=== PATIENT | female | born 1975 | race American Indian/Alaskan Native ===

== ENCOUNTER 2017-10-26 13:34 | Emergency (ER) | payer MEDICAID ==
[2017-10-26 13:45] VITALS: RESP 18
[2017-10-26 14:56] LABS: BASO # 0.1 K/uL (0.0-0.2); BASO % 0.8 % (0.0-2.0); EOS # 0.2 K/uL (0.0-0.7); EOS % 1.9 % (0.0-4.0); HEMOGLOBIN 15.8 g/dL (11.0-16.0); LYMPH # 2.7 K/uL (1.0-4.3); LYMPH % 33.3 % (20.0-40.0); MEAN CELL VOLUME 94.1 fL (81.0-99.0); MEAN CORPUSCULAR HGB CONC 36.1 g/dL (33.0-37.0); MEAN PLATELET VOLUME 7.8 fL (7.2-11.7); MONO # 0.6 K/uL (0.0-0.8); MONO % 8.2 % (0.0-10.0); NEUT # 4.4 K/uL (1.8-7.0); NEUT % 55.8 % (50.0-75.0); NRBC % 0.1 % (0.0-2.0); RBC 4.65 Mil/uL (3.80-5.20); RED CELL DISTRIBUTION WIDTH 14.2 % (11.5-14.5)
[2017-10-26 15:02] LABS: SQUAMOUS EPITHIAL 29 /hpf (0-5); URINE BACTERIA RARE (<OCC); URINE BILIRUBIN NEGATIVE (NEGATIVE); URINE BLOOD 2+ (NEGATIVE); URINE CLARITY Hazy (Clear); URINE COLOR Yellow (YELLOW); URINE GLUCOSE (UA) NORMAL (Normal); URINE LEUKOCYTE ESTERASE NEG Leu/uL (Negative); URINE PROTEIN NEGATIVE (NEGATIVE); URINE UROBILINOGEN NORMAL mg/dL (0.2-1.0)
[2017-10-26 15:08] LABS: ALB/GLOB RATIO 1.2 (1.0-2.1); ALBUMIN 4.6 g/dL (3.5-5.0); ALT/SGPT 17 U/L (9-52); AST/SGOT 35 U/L (14-36); BLOOD UREA NITROGEN 12 mg/dL (7-17); CALCIUM 9.4 mg/dl (8.6-10.4); GFR AFRICAN-AMERICAN > 60; GFR NON-AFRICAN AMERICAN > 60; LIPASE 99 U/L (23-300)
--- NOTE | 2017-10-26 15:36 | C.PDOC ---
History Of Present Illness 42 y/o female presents to the ER complaining of abdominal discomfort, nausea, and vomiting which began after she was celebrating and drinking ETOH last night. Patient states that she felt nauseous today when her friends convinced her to have another shot making matters worse. Patient denies having CP and SOB. Time Seen by Provider: 10/26/17 14:03 Chief Complaint (Nursing): Abdominal Pain History Per: Patient History/Exam Limitations: no limitations Onset/Duration Of Symptoms: Days Current Symptoms Are (Timing): Still Present Severity: Moderate Past Medical History Reviewed: Historical Data, Nursing Documentation, Vital Signs Vital Signs: Last Vital Signs Temp 98.3 F 10/26/17 17:39 Pulse 72 10/26/17 17:39 Resp 18 10/26/17 17:39 BP 99/64 L 10/26/17 17:39 Pulse Ox 98 10/26/17 18:32 - Medical History PMH: Asthma, Bronchitis Other Surgeries: Hx of surgeries Family History: States: No Known Family Hx - Social History Hx Alcohol Use: Yes Hx Substance Use: No - Immunization History Hx Tetanus Toxoid Vaccination: Yes Hx Influenza Vaccination: No Hx Pneumococcal Vaccination: No Review Of Systems Except As Marked, All Systems Reviewed And Found Negative. Constitutional: Negative for: Fever, Chills Respiratory: Negative for: Cough, Shortness of Breath Gastrointestinal: Positive for: Nausea, Vomiting, Abdominal Pain Physical Exam - Physical Exam Appears: Non-toxic, No Acute Distress Skin: Normal Color, Warm, Dry Head: Atraumatic, Normacephalic Eye(s): bilateral: Normal Inspection Nose: Normal Oral Mucosa: Moist Neck: Supple Chest: Symmetrical Cardiovascular: Rhythm Regular Respiratory: Normal Breath Sounds, No Rales, No Rhonchi, No Wheezing Gastrointestinal/Abdominal: Soft, Tenderness (mild epigastric tenderness), No Guarding, No Rebound Neurological/Psych: Oriented x3, Normal Speech ED Course And Treatment - Laboratory Results Result Diagrams: 10/26/17 14:51 10/26/17 14:51 O2 Sat by Pulse Oximetry: 98 (RA) Pulse Ox Interpretation: Normal - CT Scan/US CT- Abd. & Pelv. Other Rad Studies (CT/US): Read By Radiologist, Radiology Report Reviewed CT/US Interpretation: PROCEDURE: Radiographs of the chest and abdomen ( obstructive series). HISTORY: Abdominal pain. COMPARISON: No prior. TECHNIQUE: AP radiograph of the chest, with upright and supine radiographs of the abdomen. FINDINGS: CHEST: Lungs: Clear. Cardiovascular: Normal size heart. No pulmonary vascular congestion. Pleura: No pleural fluid. No pneumothorax. Other findings: None. ABDOMEN AND PELVIS: Bowel: Unremarkable bowel gas pattern. No evidence of mechanical obstruction however note made of moderate amount of stool within the cecum at ascending, transverse and to a lesser degree proximal descending colon consistent with mild fecal retention/ constipation. Free air: None. Bones: Unremarkable. Other findings: None. IMPRESSION: Unremarkable radiographs of chest and abdomen. No evidence of mechanical bowel obstruction. Moderate amount of stool seen throughout the cecum, ascending, transverse and proximal descending colon suggesting mild fecal retention/ constipation. Medical Decision Making Medical Decision Making: Assessment: Alcoholic gastritis Plan: --Labs --UA --X-Ray - Abd --Maalox PO --Protonix IV --Reglan IV --Toradol IV --Tylenol PO --Zofran PO Updates: On re-evaluation, patient feels better and tolerating PO. Patient has been discharged home, instructed to follow up with PMD in 2 days and return to ER if symptoms worsen. Disposition Counseled Patient/Family Regarding: Studies Performed, Diagnosis, Need For Followup, Rx Given - Disposition Referrals: Rudy Suggs MD [Staff Provider] - Disposition: HOME/ ROUTINE Disposition Time: 15:34 Condition: IMPROVED Additional Instructions: follow up with your doctor in 2 days call to make an appointment take medications as prescribed return to ER if symptoms worsens or progress Prescriptions: Famotidine [Pepcid] 20 mg PO BID #20 tab Ondansetron ODT [Zofran ODT] 4 mg PO TID PRN #12 odt PRN Reason: Nausea/Vomiting Instructions: Nausea and Vomiting, Adult (DC) Forms: General Discharge Instructions, [facility] ([place]), Work Excuse - Clinical Impression Clinical Impression: Alcoholic gastritis - Scribe Statement The provider has reviewed the documentation as recorded by the Antoinette Kim Provider Attestation: All medical record entries made by the Laineyibniraj were at my direction and personally dictated by me. I have reviewed the chart and agree that the record accurately reflects my personal performance of the history, physical exam, medical decision making, and the department course for this patient. I have also personally directed, reviewed, and agree with the discharge instructions and disposition.
[2017-10-26] MEDS ORDERED: Aluminum Hydroxide/Magnesium Hydroxide Susp (30 mL) PO STA (15:40)
[2017-10-26] MEDS ORDERED: Aluminum Hydroxide/Magnesium Hydroxide Susp (30 mL) ONE (15:52)
[2017-10-26 17:40] VITALS: BP 99/64; PULSE 72; TEMP 98.3
[2017-10-26 17:58] VITALS: O2SAT 98
--- NOTE | 2017-10-26 18:47 | RAD ---
PROCEDURE: Radiographs of the chest and abdomen (obstructive series) HISTORY: Abdominal pain COMPARISON: No prior. TECHNIQUE: AP radiograph of the chest, with upright and supine radiographs of the abdomen. FINDINGS: CHEST: Lungs: Clear. Cardiovascular: Normal size heart. No pulmonary vascular congestion. Pleura: No pleural fluid. No pneumothorax. Other findings: None. ABDOMEN AND PELVIS: Bowel: Unremarkable bowel gas pattern. No evidence of mechanical obstruction however note made of moderate amount of stool within the cecum at ascending, transverse and to a lesser degree proximal descending colon consistent with mild fecal retention/ constipation. Free air: None. Bones: Unremarkable. Other findings: None. IMPRESSION: Unremarkable radiographs of chest and abdomen. No evidence of mechanical bowel obstruction. Moderate amount of stool seen throughout the cecum, ascending, transverse and proximal descending colon suggesting mild fecal retention/ constipation.
== END 2017-10-26 17:44 | disposition home or self-care (01) ==
LOC: C.ER 13:34
DX: K29.20 Alcoholic gastritis without bleeding (principal)
CPT/HCPCS: 74022; 80053; 81001; 83690; 85025; 96374; 96375; 99284; C9113; J1885; J2765

== ENCOUNTER 2018-10-06 05:55 | Emergency (ER) | payer OTHER ==
[2018-10-06 06:41] LABS: SQUAMOUS EPITHIAL 4 /hpf (0-5); URINE BILIRUBIN NEGATIVE (NEGATIVE); URINE BLOOD 3+ (NEGATIVE); URINE CLARITY Hazy (Clear); URINE COLOR Yellow (YELLOW); URINE GLUCOSE (UA) NORMAL (Normal); URINE LEUKOCYTE ESTERASE NEG Leu/uL (Negative); URINE PROTEIN 2+ mg/dL (NEGATIVE)
[2018-10-06] MEDS ORDERED: cefTRIAXone (Rocephin) 250 mg Inj IM STA (09:02)
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
[2018-10-06] MEDS ORDERED: cefTRIAXone (Rocephin) 250 mg Inj IM ONE (09:45)
[2018-10-06 10:12] VITALS: BP 126/81; PULSE 81; RESP 18; TEMP 98.1; O2SAT 100
== END 2018-10-06 10:18 | disposition home or self-care (01) ==
LOC: C.ER 05:55 → MERGE 05:55 → C.ER 10:18
DX: T76.21XA Adult sexual abuse, suspected, initial encounter (principal); Z59.0 Homelessness
CPT/HCPCS: 81001; 84703; 96372; 99285; J0696